=== PATIENT | female | born 1985 | race Two or more races ===

== ENCOUNTER 2019-01-30 03:40 | Emergency (ER) | payer OTHER ==
[~2019-01-30] VITALS: Ht 149.9 cm; Wt 99.8 kg
[2019-01-30] MEDS ORDERED: PRED20TA PO (04:00)
[2019-01-30] MEDS ORDERED: predniSONE 10 MG TABLET PO ONE (04:15)
[2019-01-30] MEDS ORDERED: amLODIPine BESYLATE 5 MG TABLET PO ONE (04:15)
[2019-01-30] MEDS ORDERED: diphenhydrAMINE HCL 25 MG CAPSULE PO ONE (04:15)
[2019-01-30 04:26] VITALS: BP 212/104
[2019-01-30] MEDS ORDERED: AMLO5TAB10 PO (05:16)
--- NOTE | 2019-01-30 05:27 | PHYS DOC ---
Past Medical History Past Medical History: No Pertinent History Past Surgical History: No Surgical History Alcohol Use: Occasionally Drug Use: None Adult General Chief Complaint Chief Complaint: ALLERGIC REACTION HPI HPI Patient is a 33 year old f with cc of allergic reaction. thinks maybe had some strawberries could be the trigger. she is not sure. itching of the face and some swelling of the lips and felt like the tongue was sort of getting thick so came to er for evaluation had elev bp in but has not checked recently she is on period currently so denies Review of Systems Review of Systems Constitutional: Denies fever or chills [] Respiratory: Denies cough or shortness of breath [] Cardiovascular: No additional information not addressed in HPI [] GI: Denies abdominal pain, nausea, vomiting, bloody stools or diarrhea [] : Denies dysuria or hematuria [] Musculoskeletal: Denies back pain or joint pain [] Integument: All other systems were reviewed and found to be within normal limits, except as documented in this note. Current Medications Current Medications Current Medications Medications (Trade) Dose Ordered Sig/Belinda Start Time Stop Time Status Last Admin Dose Admin Amlodipine Besylate (Norvasc) 10 mg 1X ONCE 01/30/19 04:15 01/30/19 04:16 DC 01/30/19 04:26 10 MG Diphenhydramine HCl (Benadryl) 50 mg 1X ONCE 01/30/19 04:15 01/30/19 04:16 DC 01/30/19 04:27 50 MG Prednisone (Prednisone) 50 mg 1X ONCE 01/30/19 04:15 01/30/19 04:16 DC 01/30/19 04:27 50 MG Allergies Allergies Allergies Coded Allergies Type Severity Reaction Last Updated Verified nitrofurantoin Allergy Intermediate HIVES 01/30/19 Yes Physical Exam Physical Exam Constitutional: Well developed, well nourished, no acute distress, non-toxic appearance. [] HENT: Normocephalic, atraumatic, bilateral external ears normal, oropharynx moist, no oral exudates, nose normal. [] Eyes: PERRLA, EOMI, conjunctiva normal, no discharge. [] Neck: Normal range of motion, no tenderness, supple, no stridor. [] Cardiovascular:Heart rate regular rhythm, no murmur [] Lungs & Thorax: Bilateral breath sounds clear to auscultation [] Abdomen: Bowel sounds normal, soft, no tenderness, no masses, no pulsatile masses. [] Skin: diffuse urticarial rash on the face noted. Extremities: No tenderness, no cyanosis, no clubbing, ROM intact, no edema. [] Neurologic: Alert and oriented X 3, normal motor function, normal sensory function, no focal deficits noted. [] Psychologic: Affect normal, judgement normal, mood normal. [] Current Patient Data Vital Signs Vital Signs Date Time Temp Pulse Resp B/P (MAP) Pulse Ox O2 Delivery O2 Flow Rate FiO2 01/30/19 04:26 82 212/104 01/30/19 03:56 97.7 18 99 Room Air 97.7 bp down to 180 range after amlodipine EKG EKG [] Radiology/Procedures Radiology/Procedures [] Course & Med Decision Making Course & Med Decision Making Pertinent Labs and Imaging studies reviewed. (See chart for details) 33 yo f p/w cc of allergic reaction, unclear etiology could be strawberries rx prednisone, continue benadryl. on exam airway patent, no airway involvement. noted bp given amlodipine there is some improvemnt rx for same f/u pmd thursday for further evaluation and close monitoring of this number. Dragon Disclaimer Dragon Disclaimer This electronic medical record was generated, in whole or in part, using a voice recognition dictation system. Departure Departure Impression: Primary Impression: Elevated blood pressure reading Additional Impression: Allergic reaction Disposition: HOME, SELF-CARE Condition: STABLE Referrals: NO PCP (PCP) Patient Instructions: Rash, [id number] Scripts Amlodipine Besylate (AMLODIPINE BESYLATE) 5 Mg Tablet 5 MG PO DAILY for 30 Days, #30 TAB Prov: HEATHER LEMUS MD 01/30/19 Prednisone (PREDNISONE) 20 Mg Tablet 2 TAB PO DAILY, #6 TAB Prov: HEATHER LEMUS MD 01/30/19 Problem Qualifiers HEATHER LEMUS MD Jan 30, 2019 05:27
== END 2019-01-30 05:45 | disposition home or self-care (01) ==
LOC: ER 03:40
DX: T78.40XA Allergy, unspecified, initial encounter (principal); R03.0 Elevated blood-pressure reading, without diagnosis of hypertension; Z88.8 Allergy status to other drugs, medicaments and biological substances
CPT/HCPCS: 99284; J7512; Q0163